=== PATIENT | male | born 1995 | race Caucasian/White ===

== ENCOUNTER 2020-12-24 12:22 | Emergency (ER) | payer OTHER, SELFPAY ==
[2020-12-24 12:36] VITALS: BP 119/73; PULSE 81; RESP 16; TEMP 37.1; O2SAT 100
--- NOTE | 2020-12-24 13:39 | ED.SKABFB ---
HPI - Skin/Abscess/Foreign Bdy General Chief complaint: Skin/Abscess/Foreign Body Stated complaint: rash all over Time Seen by Provider: 12/24/20 13:39 Source: patient Mode of arrival: ambulatory Limitations: no limitations History of Present Illness HPI narrative: Marco Abreu is a 25 yo male with a generalized rash that he attributes to a new cat -tried Benadryl by mouth and also lotion -he has a random rash on parts of his body that are very small papular patches, most of meds up to this time Related Data Allergies Allergy/AdvReac Type Severity Reaction Status Date / Time cats Allergy Itching Uncoded 12/24/20 12:56 Review of Systems Review of Systems: Narrative: CONSTITUTIONAL: Denies fever, chills, sweats. EYES: Denies visual changes, redness, discharge. ENT: Denies rhinorrhea, congestion, sore throat, otalgia. CARDIOVASCULAR: Denies chest pain, palpitations, edema. RESPIRATORY: Denies dyspnea, wheezing, cough GASTROINTESTINAL: Denies abdominal pain, nausea, vomiting, diarrhea. GENITOURINARY: Denies dysuria, hematuria, abnormal discharge SKIN: Rash to arms buttocks legs chest and face NEUROLOGIC: Denies numbness, or focal weakness. PSYCHIATRIC: Denies anxiety or depression. PMFSH Past Medical History Medical History No acute medical problems Family History Family History (Updated 12/24/20 @ 13:51 by Sylvia Valerio CNP) Other Diabetes mellitus Heart disease Social History Social History (Updated 12/24/20 @ 13:52 by Sylvia Valerio CNP) Smoking status: Never smoker Alcohol intake: current Living arrangements: with friend(s) Gender identity (if verbalized by the patient): Male Comments At time of signature, I agree with nursing past medical, surgical, social and family history. There is no relevant family history pertinent to the presenting complaint. Exam Narrative: Exam Narrative: GENERAL: This is a well-nourished, well-developed patient, in mild distress. HEAD: normocephalic, atraumatic. EYES: Sclera clear/white. Vision is grossly intact. EARS: External ears normal, . Hearing grossly intact. NOSE: External nose normal without nasal discharge, nares without redness, no rhinorrhea. THROAT: Mucous membranes moist, NECK: Neck supple, non-tender CARDIOVASCULAR: Regular rate and rhythm without murmurs, gallops, or rubs. RESPIRATORY: Clear to auscultation. Breath sounds equal bilaterally. No wheezes, rales, or rhonchi. GASTROINTESTINAL: Abdomen soft, non-tender, SKIN: warm, intact with red papular rash in the forearms back of hands on face on buttocks and anterior thigh and legs, not improved with Benadryl NEURO: awake, alert, and oriented to person, place and time. There were no obvious focal neurologic abnormalities. Steady gait EXTREMITIES: Normal range of motion. BACK: Nontender without deformity Course Course Emergency Course: Patient comes with a generalized rash on legs arms face and buttocks, looks like contact dermatitis Started on prednisone here in given Medrol Dosepak, continue Benadryl, Pepcid at home Vital Signs Vital signs: Vital Signs Temperature 98.8 F 12/24/20 12:36 Pulse Rate 81 12/24/20 12:36 Respiratory Rate 16 12/24/20 12:36 Blood Pressure 119/73 12/24/20 12:36 Pulse Oximetry 100 12/24/20 12:36 Temperature 98.8 F 12/24/20 12:36 Pulse Rate 81 12/24/20 12:36 Respiratory Rate 16 12/24/20 12:36 Blood Pressure 119/73 12/24/20 12:36 Pulse Oximetry 100 12/24/20 12:36 MDM - Skin/Abscess/Foreign Bdy Differential Diagnosis Differential diagnosis: Likely urticaria, allergic reaction to drug, cellulitis, insect bites, contact dermatitis and other Critical Care Time Critical Care Time Critical Care Time: No Discharge Plan Discharge Clinical Impression: Contact dermatitis Qualifiers: Contact dermatitis type: allergic Contact dermatitis trigger: unspecified trig
[2020-12-24] MEDS: predniSONE 20 MG TABLET 60 MG PO (13:56)
== END 2020-12-24 14:02 | disposition home or self-care (01) ==
PROVIDERS: Emergency Provider Nurse Practitioner
DX: L23.9 Allergic contact dermatitis, unspecified cause (principal)
CPT/HCPCS: 99213; G0463; J7512

== ENCOUNTER 2021-10-09 22:57 | Emergency (ER) | payer BC, SELFPAY ==
[2021-10-09 22:59] VITALS: BP 119/74; PULSE 72; RESP 16; TEMP 36.1; O2SAT 100
[2021-10-10] MEDS: HYDROcodone/acetaminophen (*CRX) 5-325 MG TABLET 1 TAB PO (01:54)
[2021-10-10] MEDS: ORPHENADRINE CITRATE 100 MG TABLET.ER PO (01:54)
[2021-10-10] MEDS: KETOROLAC 30 MG/ML VIAL (*BKC) IM (01:55)
[2021-10-10] MEDS: LIDOCAINE 5% PATCH 1 PATCH TRANSDERM (02:11)
--- NOTE | 2021-10-10 02:54 | ED.BACK ---
HPI - Back Pain/Injury General Chief Complaint: Back Pain/Injury Stated Complaint: back pain Time Seen by Provider: 10/10/21 01:03 Source: patient Mode of arrival: ambulatory Limitations: no limitations History of Present Illness HPI Narrative: 26-year-old male presents today with increasing back pain. Patient states about a week ago he was lifting a box when the pain started. Patient has seen 3 chiropractor since then with no relief removed patient has been using 800 mg ibuprofen as needed for pain. Patient currently rating her pain 9 out of 10. Related Data Allergies Allergy/AdvReac Type Severity Reaction Status Date / Time cats Allergy Itching Uncoded 10/09/21 23:04 Review of Systems Review of Systems: CONSTITUTIONAL: Denies fever, chills, or sweats. EYES: Denies visual changes, redness, or discharge. ENT: Denies rhinorrhea, congestion, sore throat, or otalgia. CARDIOVASCULAR: Denies chest pain, palpitations, or edema. RESPIRATORY: Denies cough or dyspnea. GASTROINTESTINAL: Denies abdominal pain, nausea, vomiting, or diarrhea. GENITOURINARY: Denies dysuria or hematuria. SKIN: Denies rash or itching. MUSCULOSKELETAL: Back pain, back pain radiating down right leg. Denies joint pain, or myalgia. NEUROLOGIC: Denies headache, numbness, dizziness, or weakness. PSYCHIATRIC: Denies anxiety or depression. PMFSH Past Medical History Medical History No acute medical problems Family History Family History Other Diabetes mellitus Heart disease Social History Social History Smoking status: Never smoker Alcohol intake: current Gender identity (if verbalized by the patient): Male Exam Narrative: GENERAL: Well-appearing, well-nourished, and in mild distress. HEAD: Normocephalic, atraumatic. EYES: PERRLA and EOMI. ENT: Nares clear, no rhinorrhea or epistaxis. Mucous membranes moist. Oropharynx without tonsillar hypertrophy exudate or other lesions. Bilateral TMs pearly dale nonbulging NECK: Supple. No adenopathy or masses. No carotid bruits or JVD CHEST: Clear to auscultation. No respiratory distress. No wheezes rales or rhonchi HEART: Regular rate and rhythm. No murmur heard. Normal peripheral pulses. ABDOMEN: Soft, nontender, nondistended, normal active bowel sounds. BACK/SPINE: No spinal process tenderness. Muscle spasms noted to right back. Positive bilateral straight leg raise at 15 degrees EXTREMITIES: Normal range of motion. No edema. SKIN: Warm, dry, no rash. NEURO: No focal deficits. Alert and oriented x3. PSYCH: Normal mood and affect. Course Course Emergency Course: Patient has noted some improvment in pain. Ready for discharge. Vital Signs Vital signs: Vital Signs Temperature 36.1 C L 10/09/21 22:59 Pulse Rate 72 10/09/21 22:59 Respiratory Rate 16 10/09/21 22:59 Blood Pressure 119/74 10/09/21 22:59 Pulse Oximetry 100 10/09/21 22:59 Temperature 36.1 C L 10/09/21 22:59 Pulse Rate 70 10/10/21 03:00 Respiratory Rate 16 10/10/21 03:00 Blood Pressure 119/74 10/09/21 22:59 Pulse Oximetry 97 10/10/21 03:00 MDM - Back Pain/Injury MDM Narrative Medical decision making narrative: Patient's pain is positional in nature and localized to back without signs of cord compression or cauda equina based on neurological exam, skeletal exam and history. No fever or other significant factors to suggest osteomyelitis or spinal epidural abscess. No symptoms or signs to suggest pain is referred from abdominal or / cardiopulmonary sources. No pulsatile masses noted on exam. Patient ambulates with steady gait and is stable for outpatient management given case findings. Differential Diagnosis Differential diagnosis: Likely lumbar radiculopathy, sciatica, strain of lumbar region and thoracic back pain Medical Rec[facility]
[2021-10-10 03:00] VITALS: PULSE 70; RESP 16; O2SAT 97
== END 2021-10-10 03:01 | disposition home or self-care (01) ==
PROVIDERS: Emergency Provider Nurse Practitioner Family
DX: S39.012A Strain of muscle, fascia and tendon of lower back, initial encounter (principal); X50.0XXA Overexertion from strenuous movement or load, initial encounter
CPT/HCPCS: 96372; 99283; A9270; J1885

== ENCOUNTER → 2023-09-28 08:41 | Outpatient (CLI) | payer BC, SELFPAY ==
--- NOTE | ~2023-09-28 | US_ITS ---
EXAMINATION: US abdomen limited DATE: 09/28/2023 09:02 INDICATION: Right upper quadrant abdominal pain. TECHNIQUE: Multiple grayscale and Doppler ultrasound images of the abdomen were obtained. COMPARISON: None FINDINGS: Abdominal aorta is normal in caliber. The visualized portions of the head and body of the p ancreas are normal. The liver is normal without focal lesion. No liver surface nodularity. There is n ormal flow in main portal vein. The gallbladder is normal in size. No gallstones or gallbladder wall thickening. There is no sonographic Hodges sign. The common duct is normal and measures 4 mm. Right k idney is normal. IMPRESSION: 1. Normal right upper quadrant ultrasound. Reviewed, dictated and finalized at location E. [facility] [employer]
== END ==
PROVIDERS: PCP Physician Assistant; Visit Provider Physician Assistant
DX: R10.11 Right upper quadrant pain (principal); R19.7 Diarrhea, unspecified
CPT/HCPCS: 76705

== ENCOUNTER 2023-10-30 09:37 | Outpatient (CLI) | payer BC, SELFPAY ==
[2023-10-30 11:04] LABS: Influenza A QL RT-PCR Negative (Negative); Influenza B QL RT-PCR Negative (Negative); RSV RNA, RT-PCR Negative (Negative); SARS-CoV-2 RNA PCR Negative (Negative)
== END 2023-10-30 09:38 | disposition home or self-care (01) ==
LOC: ANHLAB 09:38
PROVIDERS: PCP Family Medicine; Visit Provider Physician Assistant
DX: J02.9 Acute pharyngitis, unspecified (principal); Z20.822 Contact with and (suspected) exposure to COVID-19
CPT/HCPCS: 87637